=== PATIENT | male | born 1945 | race African-American/Black ===

== ENCOUNTER → 2024-07-22 | Outpatient (CLI) | payer MEDICARE ==
[2024-07-22 20:43] LABS: Anti-DNA, DS unit <1.0 IU/mL; DNA Double-Stranded Negative (Negative)
== END | disposition home or self-care (01) ==
LOC: LABWHC1 15:20
PROVIDERS: ATTEND Internal Medicine
DX: R79.9 Abnormal finding of blood chemistry, unspecified (principal)
CPT/HCPCS: 36415; 83516; 86038; 86225; 86235

== ENCOUNTER → 2024-08-09 | Outpatient (CLI) | payer MEDICARE, BC ==
--- NOTE | 2024-08-09 14:03 | NM ---
INDICATION: Patient age:Male; 79 years old; Reason for study: M06.9 RHEUMATOID ARTHRITIS R97.20 ELEVATED PSA; PHH. COMPARISON: None. TECHNIQUE: Intravenous administration of 22.0 mCi of Technetium 99m-Medronate followed by multiple sc intigraphic images of the appendicular and axial skeleton. Small field of view planar anterior and po sterior images of the knees, feet, and shoulders were obtained. FINDINGS: Focal radiotracer uptake identified within the right knee in the region of the patella. Additional fo jacqueline uptake identified within the right midfoot and right first digit. Additional focal uptake identif ied within the right maxilla. Symmetrical uptake identified within the bilateral AC joints. Physiologic radiotracer activity is demonstrated in the kidneys and bladder. IMPRESSION: 1. Scattered regions of focal radiotracer uptake involving the bilateral shoulders, right knee, and right mid foot/great toe suggestive of degenerative changes. Consider further evaluation with radiogr aphs as clinically indicated. 2. Nonspecific uptake identified within the right maxilla. Consider further evaluation with CT as cl inically indicated. [facility], , 08/09/2024 2:00 PM
== END | disposition home or self-care (01) ==
LOC: RADNMMAIN 09:43
PROVIDERS: ATTEND Internal Medicine
DX: M06.9 Rheumatoid arthritis, unspecified (principal); R97.20 Elevated prostate specific antigen [PSA]
CPT/HCPCS: 78306; A9503

== ENCOUNTER → 2024-09-15 | Outpatient (CLI) | payer MEDICARE, BC ==
[2024-09-15 10:28] LABS: Basophils # (A) 0.04 X 10*3/uL (0.00-0.10); Basophils % (A) 0.8 %; Eosinophils % (A) 4.1 %; HCT 41.9 % (39.6-50.0); HGB 13.8 g/dL (13.0-17.0); Lymphocytes # (A) 1.88 X 10*3/uL (0.90-5.00); Lymphocytes % (A) 38.4 %; MCH 28.4 pg (27.0-32.0); MCHC 32.9 g/dL (32.0-37.0); MCV 86.2 FL (80.0-97.0); Mean Platelet Volume 12.8 FL (9.5-12.2); Monocytes # (A) 0.51 X 10*3/uL (0.20-1.00); Monocytes % (A) 10.4 %; NRBC Per 100 WBC 0 X 10*3/uL (0.00-0.01); Neutrophils # (A) 2.26 X 10*3/uL (1.80-7.70); Neutrophils % (A) 46.1 %; Platelet Count 196 X 10*3/uL (140-440); RBC 4.86 X 10*6/uL (4.40-5.60); RDW 15.4 % (11.5-14.5)
[2024-09-15 10:50] LABS: Blood Urea Nitrogen 16.5 mg/dL (9.0-27.0); Carbon Dioxide 22.7 mmol/L (21.6-31.8); Chloride 110 mmol/L (96-109); Glucose 104 mg/dL (70-110); Sodium 143 mmol/L (135-145)
[2024-09-15 11:20] LABS: Appearance,Urine Clear (Clear); Bilirubin,Urine Negative (Negative); Blood,Urine Negative (Negative); Color,Urine Yellow (Yellow); Ketones,Urine Negative (Negative); Nitrite,Urine Negative (Negative); PH, Urine 5.5; Specific Gravity,Urine 1.013 (1.001-1.030)
== END | disposition home or self-care (01) ==
LOC: LABPAT 07:34
PROVIDERS: ATTEND Urology
DX: Z01.812 Encounter for preprocedural laboratory examination (principal); R97.20 Elevated prostate specific antigen [PSA]
CPT/HCPCS: 80048; 81003; 85025; 87086

== ENCOUNTER 2024-09-21 09:16 | Day surgery (SDC) | payer MEDICARE, BC ==
--- NOTE | 2024-09-21 08:55 | P.HPIHPCON ---
History of Present Illness H&P Date: 09/21/24 Chief Complaint: Elevated PSA This is a 79-year-old male with history of elevated PSA at 18. Patient is unable to have an MRI due to to metal implants in his body. Discussed with him the option of a transrectal biopsy of the prostate. He is aware of the risk which include but not limited to bleeding, infection. Discussed also with a negative biopsy there is could still be potential malignancy. He understood all the risk and agreed to proceed Consent for Procedure: I have explained the operation/procedure to the patient, including the risks, benefits, side effects, alternative therapies (including not receiving the proposed treatment or service), the likelihood of the patient achieving his/her goals, and potential recuperation problems for the procedure/sedation/analgesia, as well as any blood products, if indicated. I also explained to the patient the risks, benefits and side effects of the alternatives, as well as the risks related to not receiving the proposed procedure, care, treatment, or services. Past Medical History Past Medical History: GERD/Reflux, Osteoarthritis (OA), Prostate Disorder Additional Past Medical History / Comment(s): hx gout, borderline htn- no meds; brain aneurysm age 20- left leg weakness & foot drop; chronic pain- back, hips, legs. elevated PSA. History of Any Multi-Drug Resistant Organisms: None Reported Past Surgical History: Orthopedic Surgery Additional Past Surgical History / Comment(s): brain surg- aneurysm clipped age 20; left foot surg age 22. right foot surg. colonoscopy. Past Anesthesia/Blood Transfusion Reactions: No Reported Reaction Smoking Status: Never smoker Medications and Allergies Home Medications Medication Instructions Recorded Confirmed Type Naproxen Sodium [Aleve] 220 mg PO DAILY PRN 09/17/24 09/17/24 History allopurinoL 100 mg PO DAILY 09/17/24 09/17/24 History Allergies Allergy/AdvReac Type Severity Reaction Status Date / Time No Known Allergies Allergy Verified 09/17/24 08:45 Surgical - Exam - General no distress, no pain - Eyes normal ocular movement, no pale - ENT normal nares, normal mucosa - Respiratory normal expansion, normal respiratory effort - Abdomen Abdomen: soft, non tender - Psychiatric oriented to time, oriented to person Assessment and Plan Assessment: OR for transrectal ultrasound biopsy of the prostate
[~2024-09-21 09:16] MED LIST: LIDOCAINE 1% (10MG/ML) FOR IV START INTRADERMA PRN
[2024-09-21] MEDS: LACTATED RINGERS 1,000 ML IV SCH (10:53)
[2024-09-21] MEDS: GENTAMICIN 40 MG/ML 2 ML VIAL IM PRN (10:53)
[2024-09-21 11:00] VITALS: TEMP 97.8
[2024-09-21] MEDS: IV FLUID CONTINUATION 1,000 ML IV ONE (11:01)
[2024-09-21] MEDS ORDERED: PROPOFOL 10 MG/ML 20 ML VIAL IV ONE (11:30)
[2024-09-21 11:57] VITALS: RESP 16
--- NOTE | 2024-09-21 12:03 | P.OP ---
Date of Procedure: 09/21/24 Preoperative Diagnosis: Elevated PSA Postoperative Diagnosis: Same Procedure(s) Performed: Transrectal ultrasound biopsy of the prostate Anesthesia: MAC Surgeon: Jose Gibson Estimated Blood Loss (ml): 0 Pathology: other (Prostate biopsies) Condition: stable Disposition: PACU Indications for Procedure: This is a 79-year-old male with history of elevated PSA at 18. Patient is unable to have an MRI due to to metal implants in his body. Discussed with him the option of a transrectal biopsy of the prostate. He is aware of the risk which include but not limited to bleeding, infection. Discussed also with a negative biopsy there is could still be potential malignancy. He understood all the risk and agreed to proceed Description of Procedure: The patient was taken to the operating room and placed in the left lateral decubitus position. The [employer] transrectal ultrasound probe was placed intrarectally. The prostate was imaged in both the axial and sagittal planes, prostate volume was 77 g. Using the Biopsy gun, 12 biopsies of the peripheral zone were obtained utilizing a standard template. Once the procedure was completed, the ultrasound probe was removed. The patient tolerated the procedure well was taken to the recovery room stable condition
[2024-09-21 12:30] VITALS: BP 123/77; PULSE 87
== END 2024-09-21 12:45 | disposition home or self-care (01) ==
LOC: OR 09:16
PROVIDERS: ATTEND Urology
DX: C61 Malignant neoplasm of prostate (principal); N40.0 Benign prostatic hyperplasia without lower urinary tract symptoms; K21.9 Gastro-esophageal reflux disease without esophagitis; I10 Essential (primary) hypertension; M19.90 Unspecified osteoarthritis, unspecified site; M10.9 Gout, unspecified; Z79.899 Other long term (current) drug therapy
CPT/HCPCS: 55700; 88344; 88305; J1580; J2704

== ENCOUNTER → 2024-10-15 | Outpatient (CLI) | payer MEDICARE, BC ==
--- NOTE | 2024-10-18 15:42 | PE ---
EXAMINATION TYPE: PET CT fusion skull to thigh DATE OF EXAM: 10/15/2024 CLINICAL INDICATION:Male, 79 years old with history of C61 prostate ca; TECHNIQUE: Following the intravenous administration of 5.6 mCi of Ga-68 Illuccix (PSMA), whole body images are performed from the skull base to the midthigh. Images are reviewed on the computer in th e coronal, axial, and sagittal planes. Reconstructed rotating images are created on independent work station and reviewed on the computer. A non-contrast CT is performed in conjunction with the PET sc an. CT DLP: 1088 mGycm, Automated exposure control for dose reduction was used. COMPARISON: CT None, PET/CT None, MRI: None, nuclear medicine bone scan 08/09/2024 FINDINGS: Mediastinal SUV mean is 2.0. Hepatic parenchyma SUV mean is 8.4. SKULL BASE AND NECK: No suspicious radiotracer activity. CHEST, MEDIASTINUM, AND HILAR REGION: No suspicious radiotracer activity. ABDOMEN AND PELVIS: Focal increased radiotracer activity identified within the anterior right prostate gland with a maxim um SUV of 12.7. MUSCULOSKELETAL STRUCTURES: No suspicious radiotracer activity. OTHER CT: Postsurgical changes of the right parietal bone with approximately 3 retained metallic fore ign bodies within the midline and right cerebrum. Bilateral palatine tonsillitis. Bilateral gynecomas tia. Mild cardiomegaly. Mild coronary arterial calcifications. Mildly enlarged prevascular space lymp h node measuring 1.5 cm without suspicious radiotracer uptake. Linear scarring or atelectasis within the right middle lobe. Bilateral lower lobe dependent subsegmental atelectasis. Calcified mediastinal lymph nodes within the right mediastinum. Couple of hepatic cysts. The largest in the right hepatic dome measuring up to 3.8 cm. Lateral simple renal cysts with largest involving the right kidney measu ring up to 4.6 cm. No follow up recommended. Fat filled right inguinal hernia. Scattered colonic dive rticulosis without evidence for acute diverticulitis. IMPRESSION: Focal radiotracer uptake within the prostate consistent with known prostate malignancy. No other susp icious radiotracer activity to suggest metastasis. [facility], , 10/18/2024 3:39 PM
== END | disposition home or self-care (01) ==
LOC: RADPETMAIN 12:47
PROVIDERS: ATTEND Urology
DX: C61 Malignant neoplasm of prostate (principal)
CPT/HCPCS: 78815; A9596